=== PATIENT | male | born 1990 | race Caucasian/White ===

== ENCOUNTER 2019-11-04 01:44 | Emergency (ER) | payer OTHER ==
[~2019-11-04] VITALS: Ht 172 cm; Wt 82.0 kg
--- OUTSIDE RECORDS SUMMARY | 2019-11-04 01:51 | XMS REPORT | Continuity of Care Document ---
Author Organization Unknown Address Unknown Phone Unavailable Allergies There is no data. Medications There is no data. Problems There is no data. Procedures There is no data. Results There is no data. Encounters ACCT No. Visit Date/Time Discharge Status Pt. Type Provider Facility Loc./Unit Complaint [id number] 10/10/2015 14:40:00 10/09 22:40:00 DIS VC ARIADNE ESCALANTE [facility] OT [id number] 10/10/2015 07:28:00 10/09 08:28:00 DIS EMILIO STEPHENS [facility] OT [id number] 10/10/2015 14:40:00 [place] [id number] 04/07/2018 10:20:00 04/07/2018 23:59:5 9 [facility] Outpatient STEVE GALLOWAY [facility]
--- OUTSIDE RECORDS SUMMARY | 2019-11-04 01:51 | XMS REPORT ---
Author Author Seferino HECTOR Organization [facility] Address [address] [place] [address] Care Team Providers Care Desktop Manager Name Role Phone ANJU HECTOR Unavailable PROBLEMS Type Condition ICD9-CM Code [id number] Code Onset Dates Condition S tatus SNOMED Code Problem Mood disorder F39 Active [id number] 05 ALLERGIES No Known Allergies ENCOUNTERS Encounter Location Date Diagnosis [facility] [address] [facility] [id number] [place] [address] Feb, Mood disorder F39 [facility] [address] [place], [place] [id number] Feb, 2018 Mood disorder F39 IMMUNIZATIONS No Known Immunizations SOCIAL HISTORY Never Assessed REASON FOR VISIT snf rx PLAN OF CARE VITAL SIGNS MEDICATIONS Unknown Medications RESULTS No Results PROCEDURES No Known procedures INSTRUCTIONS MEDICATIONS ADMINISTERED No Known Medications
--- OUTSIDE RECORDS SUMMARY | 2019-11-04 01:51 | XMS REPORT ---
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 Name Role Phone ANJU HECTOR Unavailable PROBLEMS Type Condition ICD9-CM Code [id number] Code Onset Dates Condition S tatus SNOMED Code Problem Mood disorder F39 Active [id number] 05 ALLERGIES No Known Allergies ENCOUNTERS Encounter Location Date Diagnosis [facility] [address] [place], [place] [id number] 57 Feb, Mood disorder F39 IMMUNIZATIONS No Known Immunizations SOCIAL HISTORY Never Assessed REASON FOR VISIT half-way PLAN OF CARE VITAL SIGNS Height 69 in 2018-02-24 Weight 188 lbs 2018-02-24 Heart Rate 74 bpm 2018-02-24 Respiratory Rate 18 2018-02-24 BMI 27.76 kg/m2 2018-02-24 Blood pressure systolic 134 mmHg 2018-02-24 Blood pressure diastolic 102 mmHg 2018-02-24 MEDICATIONS Medication Instructions Dosage Frequency Start Date End Date Duration S tatus Risperdal 2 MG Orally at bedtime 1 tablet Feb, 3 0 day(s) Active BusPIRone HCl 15 MG Orally Twice a day 1 tablet 12h Feb, Active RESULTS No Results PROCEDURES No Known procedures INSTRUCTIONS MEDICATIONS ADMINISTERED No Known Medications
--- NOTE | 2019-11-04 02:02 | ED Upper Extremity ---
General Chief Complaint: Trauma-Non Activation Stated Complaint: LAC TO RIGHT FOREARM,RIB PAIN Source: patient Exam Limitations: no limitations History of Present Illness Date Seen by Provider: Nov 04, 2019 Time Seen by Provider: 01:50 Initial Comments 29-year-old male presents with swelling, small laceration and bleeding to the right forearm just distal to the elbow. Patient reports he rolled a 4 bates couple times about 2 hours prior to arriving to the ER. That there is just a small laceration but the arm is continuous well and tender. That they "swelling had some blood squirting out of it when he pressed on it. There is no active bleeding at this time. He denies any other injuries. He believes his last tet anus was approximately 2 years ago. Allergies and Home Medications Allergies Coded Allergies: No Known Drug Allergies (Unverified , 11/04/19) Patient Home Medication List Home Medication List Reviewed: Yes Review of Systems Constitutional: No chills, No fever, No weakness Respiratory: no symptoms reported Cardiovascular: no symptoms reported Gastrointestinal: no symptoms reported Genitourinary: no symptoms reported Musculoskeletal: see HPI Skin: see HPI Psychiatric/Neurological: No Symptoms Reported Past Iaxyjdo-Xqjshn-Xxzimt Hx Past Med/Social Hx: Reviewed Nursing Past Med/Soc Hx Patient Social History Recent Foreign Travel: No Contact w/Someone Who Travel: No Physical Exam Vital Signs Vital Signs - First Documented 11/04/19 01:48 Temp 36.9 Pulse 117 Resp 16 B/P (MAP) 160/103 (122) Pulse Ox 97 O2 Delivery Room Air Capillary Refill : Height, Weight, BMI Height: '" Weight: lbs. oz. kg; BMI Method: General Appearance: WD/WN, no apparent distress HEENT: PERRL/EOMI Neck: full range of motion, supple Cardiovascular: normal peripheral pulses, regular rate, rhythm Respiratory: lungs clear, normal breath sounds Gastrointestinal: non tender, soft Shoulder: normal inspection Elbow/Forearm: soft tissue tenderness, swelling Wrist: Yes normal inspection Hand: normal inspection Neurologic/Psychiatric: replanter II-XII nml as tested, no motor/sensory deficits, alert, normal mood/affect, oriented x 3 Skin: other (small approximate the millimeter laceration with no active bleeding) Progress/Results/Core Measures Results/Orders My Orders Orders - ESTER YOUNG DO Forearm 2 View Right (11/04/19 01:58) Vital Signs/I&O 11/04/19 01:48 Temp 36.9 Pulse 117 Resp 16 B/P (MAP) 160/103 (122) Pulse Ox 97 O2 Delivery Room Air Diagnostic Imaging Diagonstic Imaging: Xray Plain Films/CT/US/NM/MRI: forearm Comments No acute fracture or foreign body noted Reviewed: Reviewed by Me Departure Impression Primary Impression: Traumatic hematoma of right forearm Qualified Codes: S50.11XA - Contusion of right forearm, initial encounter Additional Impression: Laceration of right forearm without foreign body Qualified Codes: S51.811A - Laceration without foreign body of right forearm, initial encounter Disposition: HOME, SELF-CARE Condition: Stable Departure-Patient Inst. Referrals: SELF,CASPER ADORNO (PCP/Family) Primary Care Physician Patient Instructions: Contusion (DC), HEMATOMA Add. Discharge Instructions: Keep wound clean with warm soapy water All discharge instructions reviewed with patient and/or family. Voiced understanding. ESTER YOUNG DO Nov 04, 2019 02:02
[2019-11-04 02:14] VITALS: BP 160/103
--- NOTE | 2019-11-04 06:36 | Diagnostic Imaging Report ---
Indication: Right forearm injury 2 views of the right forearm show no fracture or dislocation. IMPRESSION: Negative right forearm Dictated by: Dictated on workstation # [id number]
== END 2019-11-04 02:15 | disposition home or self-care (01) ==
LOC: EDUNIT# 01:44 → ER FS 01:48
DX: S51.811A Laceration without foreign body of right forearm, initial encounter (principal); V86.55XA Driver of 3- or 4- wheeled all-terrain vehicle (ATV) injured in nontraffic accident, initial encounter
CPT/HCPCS: 73090

== ENCOUNTER 2020-01-08 23:15 | Emergency (ER) | payer OTHER ==
[~2020-01-08] VITALS: Ht 177.8 cm; Wt 75.8 kg
[2020-01-08] MEDS ORDERED: KETOROLAC 60 MG/2 ML VIAL IM ONE (23:30)
[2020-01-08 23:33] VITALS: BP 131/91
--- NOTE | 2020-01-08 23:33 | ED Upper Extremity ---
General Chief Complaint: Upper Extremity Stated Complaint: RIGHT ARM INJURY/CAR FELL OFF ANGELICA Source: patient Exam Limitations: no limitations History of Present Illness Date Seen by Provider: Jan 08, 2020 Time Seen by Provider: 23:23 Initial Comments Patient is a 29-year-old male who presents to the emergency room with a chief complaint of acute arm pain. Patient states that he was working under a car on a angelica. Patient states that the car came off the angelica and pinned his right arm for about 15 or 20 minutes. Patient states that he had immediate pain. He points to the area of his right elbow and proximal forearm. Denies any other complaints of illness or injury. Denies numbness or tingling to his hand. States his last tetanus shot was 1 year ago. All other review of systems reviewed and negative except as stated above. Onset: just prior to arrival Severity: moderate Pain/Injury Location: right elbow, right forearm Method of Injury: direct blow Allergies and Home Medications Allergies Coded Allergies: No Known Drug Allergies (Unverified , 11/04/19) Patient Home Medication List Home Medication List Reviewed: Yes Review of Systems Constitutional: no symptoms reported EENTM: no symptoms reported Respiratory: no symptoms reported Cardiovascular: no symptoms reported; No chest pain Gastrointestinal: No abdominal pain Musculoskeletal: joint pain (right elbow), muscle pain (right forearm) Skin: other (abrasion) Past Ehopgfi-Sjhtzm-Cepodb Hx Patient Social History Type Used: Cigarettes 2nd Hand Smoke Exposure: No Recent Foreign Travel: No Contact w/Someone Who Travel: No Recent Hopitalizations: No Past Medical History Surgeries: No Respiratory: No Cardiac: No Neurological: No Genitourinary: No Gastrointestinal: No Musculoskeletal: No Endocrine: No HEENT: No Cancer: No Psychosocial: No Integumentary: No Blood Disorders: No Physical Exam Vital Signs Vital Signs - First Documented 01/08/20 23:33 Temp 36.1 Pulse 85 Resp 16 B/P (MAP) 131/91 (104) Pulse Ox 98 O2 Delivery Room Air Capillary Refill : Height, Weight, BMI Height: '" Weight: lbs. oz. kg; 27.00 BMI Method: General Appearance: WD/WN, mild distress HEENT: PERRL/EOMI Cardiovascular: normal peripheral pulses, regular rate, rhythm Respiratory: chest non-tender, lungs clear, normal breath sounds, no respiratory distress, no accessory muscle use Gastrointestinal: normal bowel sounds Back: normal inspection Shoulder: normal inspection Elbow/Forearm: limited ROM, pain, soft tissue tenderness, swelling (right elbow; abrasion posterior right elbow) Wrist: Yes normal inspection Hand: normal inspection Neurologic/Psychiatric: no motor/sensory deficits, alert, normal mood/affect, oriented x 3 Skin: normal color, warm/dry Progress/Results/Core Measures Results/Orders My Orders Orders - THAO SANTOS MD Elbow 3 View Right (01/08/20 23:27) Ketorolac Injection (Toradol Injection) (01/08/20 23:30) Medications Given in ED Current Medications Medications Dose Ordered Sig/Nickie Route Start Time Stop Time Status Last Admin Dose Admin Ketorolac Tromethamine 30 mg ONCE ONCE IM 01/08/20 23:30 01/08/20 23:31 DC 01/08/20 23:32 30 MG Vital Signs/I&O 01/08/20 23:33 Temp 36.1 Pulse 85 Resp 16 B/P (MAP) 131/91 (104) Pulse Ox 98 O2 Delivery Room Air Progress Progress Note : Time: 23:57 Progress Note 29-year-old male presents the emergency department today with a chief complaint of right elbow and forearm pain after a car on a car angelica fell. Patient had x- rays done of the right elbow which showed no evidence of fracture. Patient was treated in the emergency department with 30 mg of Toradol IM as well as an ice pack to the affected site. At the time of discharge the patient has soft compartments in the forearm no evidence of compartment syndrome. He is counseled on care of abrasions and the contusions. He verbalized understanding these discharge instructions. All questions are sought and answered and he is stable for discharge. Diagnostic Imaging Diagonstic Imaging: Xray Plain Films/CT/US/NM/MRI: elbow Comments 3 views of the right elbow reveal no evidence of fracture or dislocation. Interpreted by me Departure Impression Primary Impression: Abrasion Additional Impression: Contusion of elbow Qualified Codes: S50.01XA - Contusion of right elbow, initial encounter Disposition: HOME, SELF-CARE Condition: Stable Departure-Patient Inst. Decision time for Depature: 23:52 Referrals: SELF,CASPER ADORNO (PCP/Family) Primary Care Physician Patient Instructions: Contusion (DC), Skin Abrasions Add. Discharge Instructions: ICE PACK OFF AND ON TO THE RIGHT FOREARM AND ELBOW TAKE OVER THE COUNTER ALLEVE, 2 PILLS IN THE MORNING WITH FOOD AND 2 PILLS AT NIGHT. IF YOU HAVE WORSENING SWELLING, PAIN, NUMBNESS TO YOUR HAND OR OTHER EMERGENT CONCERNS, PLEASE COME BACK TO THE EMREGENCY DEPARTMENT FOR RE-EVALUATION. All discharge instructions reviewed with patient and/or family. Voiced understanding. Copy Copies To 1: SELF,THAO PRINCE MD, MD Jan 08, 2020 23:33
--- NOTE | 2020-01-09 07:25 | Diagnostic Imaging Report ---
INDICATION: Elbow pain. 3 views were obtained. FINDINGS: The alignment is normal. There is no fracture or dislocation. Soft tissues are unremarkable. IMPRESSION: No acute fracture or dislocation. Dictated by: Dictated on workstation # [id number]
== END 2020-01-08 23:57 | disposition home or self-care (01) ==
LOC: EDUNIT# 23:15 → ER FS 23:19
DX: S50.01XA Contusion of right elbow, initial encounter (principal); W22.8XXA Striking against or struck by other objects, initial encounter
CPT/HCPCS: 73080; 99283; A4565